=== PATIENT | female | born 1995 | race Caucasian/White ===

== ENCOUNTER 2016-07-26 17:10 | Emergency (ER) | payer OTHER ==
[~2016-07-26 17:10] MED LIST: ALBUTEROL17 GM NEB; BACTRIM DS TABL1 TA1 PO; NO MEDICATIONS; PRENATAL1 TA1 PO; PYRIDIUM PO; VOLTAREN50 MG PO
== END 2016-07-26 17:35 | disposition left against medical advice (07) ==
LOC: CFTX 17:10
DX: Z53.21 Procedure and treatment not carried out due to patient leaving prior to being seen by health care provider (principal)